=== PATIENT | female | born 1990 | race Caucasian/White ===

== ENCOUNTER 2018-07-17 17:56 | Emergency (ER) | payer SELFPAY ==
[2018-07-17] MEDS ORDERED: IPRATROPIUM/ALBUTEROL 0.5-2.5 MG/3 ML AMPUL NEB ONE (20:32)
--- NOTE | 2018-07-17 20:32 | ER Document Report ---
ED Medical Screen (RME) - General Chief Complaint: Asthma Exacerbation Stated Complaint: DIFFICULTY BREATHING Time Seen by Provider: 07/17/18 20:30 Notes: Patient is a 27-year-old female who presents emergency department with a chief complaint of shortness of breath. She states that she had 2 asthma attacks today. She had her rescue inhaler, but felt like it was not working. She is visiting from [place]. When she got to her friend's house she attempted to use her nebulizer treatment, but the nebulizer machine was broken. She then called 911 to be brought in for an acute asthma exacerbation. She feels like her lungs are constricted. Past medical history includes PTSD, SVT, osteopenia, pots, TBI, and hypothyroidism. Exam: Diminished breath sounds in the bases. I have greeted and performed a rapid initial assessment of this patient. A comprehensive ED assessment and evaluation of the patient, analysis of test results and completion of medical decision making process will be conducted by an additional ED providers. TRAVEL OUTSIDE OF THE [place] IN LAST 30 DAYS: No - Related Data Allergies/Adverse Reactions: No Known Allergies Allergy (Unverified 07/17/18 18:12) Physical Exam - Vital signs Vitals: Temp Pulse Resp BP Pulse Ox 98.4 F 79 18 130/90 H 100 07/17/18 18:25 07/17/18 18:25 07/17/18 18:25 07/17/18 18:25 07/17/18 18:25 Course - Vital Signs Vital signs: Temp Pulse Resp BP Pulse Ox 98.4 F 79 18 130/90 H 100 07/17/18 18:25 07/17/18 18:25 07/17/18 18:25 07/17/18 18:25 07/17/18 18:25
--- NOTE | 2018-07-17 21:27 | RADIOLOGY REPORT (SQ) ---
EXAM DESCRIPTION: CHEST SINGLE VIEW COMPLETED DATE/TIME: 07/17/2018 8:47 pm REASON FOR STUDY: shortness of breath COMPARISON: None. EXAM PARAMETERS: NUMBER OF VIEWS: One view. TECHNIQUE: Single frontal radiographic view of the chest acquired. RADIATION DOSE: NA LIMITATIONS: None. FINDINGS: LUNGS AND PLEURA: No opacities, masses or pneumothorax. No pleural effusion. MEDIASTINUM AND HILAR STRUCTURES: No masses. Contour normal. HEART AND VASCULAR STRUCTURES: Heart normal in size. Normal vasculature. BONES: No acute findings. HARDWARE: None in the chest. OTHER: No other significant finding. IMPRESSION: NO ACUTE RADIOGRAPHIC FINDING IN THE CHEST. TECHNICAL DOCUMENTATION: JOB ID: [id number] [place]-72 2010 [employer]- All Rights Reserved Reading location - IP/workstation name: [employer]
[2018-07-18] MEDS ORDERED: IPRATROPIUM/ALBUTEROL 0.5-2.5 MG/3 ML AMPUL NEB ONE (00:15)
--- NOTE | 2018-07-18 00:16 | ER Document Report ---
ED General - General Chief Complaint: Asthma Exacerbation Stated Complaint: DIFFICULTY BREATHING Time Seen by Provider: 07/17/18 20:30 Notes: Patient is a 27-year-old female who presents emergency department with a chief complaint of shortness of breath. She states that she had 2 asthma attacks today. She had her rescue inhaler, but felt like it was not working. She is visiting from [place]. When she got to her friend's house she attempted to use her nebulizer treatment, but the nebulizer machine was broken. She then called 911 to be brought in for an acute asthma exacerbation. She feels like her lungs are constricted. Past medical history includes PTSD, SVT, osteopenia, pots, TBI, and hypothyroidism. TRAVEL OUTSIDE OF THE [place] IN LAST 30 DAYS: No - Related Data Allergies/Adverse Reactions: No Known Allergies Allergy (Unverified 07/17/18 18:12) Past Medical History - Social History Smoking Status: Never Smoker Chew tobacco use (# tins/day): No Frequency of alcohol use: None Drug Abuse: None Family History: Reviewed & Not Pertinent Patient has suicidal ideation: No Patient has homicidal ideation: No Renal/ Medical History: Denies: Hx Peritoneal Dialysis Review of Systems - Review of Systems Notes: REVIEW OF SYSTEMS: CONSTITUTIONAL : Denies recent illness. Denies recent unintentional weight loss. Denies fever, chills, or sweats. EENT: Denies eye, ear, throat, or mouth pain, discharge, or symptoms. Denies nasal or sinus congestion. CARDIOVASCULAR: Denies chest pain. RESPIRATORY: See HPI GASTROINTESTINAL: Denies nausea, vomiting, and diarrhea. Denies abdominal pain. Denies constipation. GENITOURINARY: Denies difficulty urinating, burning, blood in urine, urgency or frequency. MUSCULOSKELETAL: Denies neck and back pain. Denies joint pain or swelling. SKIN: Denies rash, itchiness, or lesions HEMATOLOGIC : Denies easy bruising or bleeding. LYMPHATIC: Denies swollen, painful, enlarged glands. NEUROLOGICAL: Denies no numbness or tingling denies weakness. Denies headache. Denies altered mental status. Denies alteration in speech. PSYCHIATRIC: Denies stress, anxiety, alteration in sleep patterns, or depression. All other systems reviewed and negative. Physical Exam - Vital signs Vitals: Temp Pulse Resp BP Pulse Ox 98.4 F 79 18 130/90 H 100 07/17/18 18:25 07/17/18 18:25 07/17/18 18:25 07/17/18 18:25 07/17/18 18:25 - Notes Notes: PHYSICAL EXAMINATION: GENERAL: Appears well, healthy, well-nourished, no acute distress. HEAD: Normocephalic, atraumatic. EYES: PERRL, conjunctiva normal, all extraocular movements intact, sclera nonicteric ENT: Moist mucous membranes. NECK: Supple, no noticeable swelling, redness, rash. Normal range of motion. LUNGS: Equal breath sounds bilaterally and clear to auscultation. No wheezes rales or rhonchi. CARDIOVASCULAR: S1-S2, regular rate, regular rhythm. Radial pulses 2+, normal. ABDOMEN: Normoactive bowel sounds. Soft, nontender, no guarding, no rebound tenderness, and no masses palpated. EXTREMITIES: Normal strength and range of motion, no pitting or edema. No cyanosis. NEUROLOGICAL: Moves all extremities upon command. Strength 5/5 in all extremities. PSYCH: Normal mood, normal affect. SKIN: Warm, dry. No rash, lesions, ulcerations noted. Normal skin turgor. Course - Re-evaluation Re-evalutation: 07/18/18 00:16 I reassessed the patient and he states that she feels like she needs one more treatment. Exam and symptoms are consistent with an acute asthma exacerbation. I will give her 1 more DuoNeb treatment here in the emergency department. She does not go back to [place] until the end of July and she is worried that she may not have a nebulizer machine for when she is at her friend's house. I will write her prescription for a nebulizer machine. She is in agreement with this plan. 07/18/18 01:08 I have reassessed the patient and she states she feels better. Verbal discharge instructions were given to the patient. They verbalized understanding. They are stable for discharge. - Vital Signs Vital signs: Temp Pulse Resp BP Pulse Ox 98.1 F 76 18 128/86 H 99 07/18/18 01:20 07/18/18 01:20 07/18/18 01:20 07/18/18 01:20 07/18/18 01:20 Discharge - Discharge Clinical Impression: Asthma exacerbation Qualifiers: Asthma severity: moderate Asthma persistence: persistent Qualified Code(s): J45.41 - Moderate persistent asthma with (acute) exacerbation Condition: Stable Disposition: HOME, SELF-CARE Instructions: Asthma ([facility]) Additional Instructions: You were seen today in the emergency department for an asthma exacerbation. You have been given a prescription for a new nebulizer machine. Please go to any medical supply store here in [place] to get your nebulizer machine. Please use your breathing treatments as needed. If you have worsening symptoms, shortness of breath, difficulty breathing, or have any symptoms that are worrisome to you, please return to the emergency department. Please follow-up with your leather stretcher in [place] in regards to this visit.
[2018-07-18 01:21] VITALS: BP 128/86
== END 2018-07-18 01:21 | disposition home or self-care (01) ==
LOC: ER 17:56
DX: J45.41 Moderate persistent asthma with (acute) exacerbation (principal); R06.02 Shortness of breath
CPT/HCPCS: 94640 ×2; 99285; 71045; J7620 ×2